=== PATIENT | male | born 1945 | race American Indian/Alaskan Native ===

== ENCOUNTER 2016-10-08 19:58 | Emergency (ER) | payer MEDICARE ==
--- NOTE | 2016-10-08 20:09 | Emergency Department Report ---
Chief Complaint: Dyspnea/Respdistress Stated Complaint: SHORTNESS OF BREATH Time Seen by Provider: 10/08/16 20:04 - HPI History of Present Illness: pt c/o sob since yesterday. PT saw pcp today but is no better after using inhalers. - ROS Review of Systems: denies cp + sob - Exam Physical Exam: thin male tachypnea noted MSE screening note: Focused history and physical exam performed. Due to findings the following was ordered: pt sent to EKG. labs, xr ED Disposition for MSE Condition: Stable
[2016-10-08 20:13] VITALS: BP 136/82
[2016-10-08 21:14] LABS: Basophils % (Auto) 0.6 % (0.0-1.8); Eosinophils % (Auto) 0.7 % (0.0-4.3); Hemoglobin 12.9 gm/dl (11.8-15.2); Mean Corpuscular HGB Conc 33 % (32-34); Mean Corpuscular Hemoglobin 28 pg (28-32); Mean Corpuscular Volume 85 fl (84-94); Platelet Count 170 K/mm3 (140-440); Red Blood Count 4.61 M/mm3 (3.65-5.03); White Blood Count 4.3 K/mm3 (4.5-11.0)
[2016-10-08 21:24] LABS: INR 0.94 (0.87-1.13)
[2016-10-08 21:25] LABS: Partial Thromboplastin Time 25.8 Sec. (24.2-36.6)
[2016-10-08 21:36] LABS: Alanine Aminotransferase 18 units/L (7-56); Albumin 3.6 g/dL (3.9-5); Albumin/Globulin Ratio 1.1 %; Alkaline Phosphatase 101 units/L (35-129); Anion Gap 28 mmol/L; BUN/Creatinine Ratio 16.25; Bilirubin,Total 1.4 mg/dL (0.1-1.2); Blood Urea Nitrogen 13 mg/dL (9-20); Calcium 9.3 mg/dL (8.4-10.2); Carbon Dioxide 24 mmol/L (22-30); Chloride 93.1 mmol/L (98-107); Glucose 74 mg/dL (75-100); Sodium 142 mmol/L (137-145)
--- NOTE | 2016-10-09 08:50 | XRay Report ---
PORTABLE CHEST INDICATION: Dyspnea. COMPARISON: 12/11/[address] FINDINGS: Portable, frontal chest radiograph again demonstrates normal cardiomediastinal silhouette, dense aortic knob calcifications, 1.4 cm AP window calcified lymph node, post CABG changes, biapical scarring/pleural thickening, clear well-expanded lungs and intact bones. CONCLUSION: No acute disease in the chest with post CABG changes noted, as described. Thank you for the opportunity to participate in this patient's care.
--- NOTE | 2016-10-09 15:16 | ED Elopement Review ---
ED Pt Elopement review - Results review Lab results: Laboratory Tests 10/08/16 10/08/16 10/08/16 20:53 20:53 20:53 WBC 4.3 L RBC 4.61 Hgb 12.9 Hct 39.0 MCV 85 MCH 28 MCHC 33 RDW 17.0 H Plt Count 170 Lymph % (Auto) 34.1 [place] % (Auto) 11.1 H Eos % (Auto) 0.7 Baso % (Auto) 0.6 Lymph # 1.5 [place] # 0.5 Eos # 0.0 Baso # 0.0 Seg Neutrophils % 53.5 Seg Neutrophils # 2.3 PT 12.5 INR 0.94 APTT 25.8 Sodium 142 Potassium 3.0 L Chloride 93.1 L Carbon Dioxide 24 Anion Gap 28 BUN 13 Creatinine 0.8 Estimated GFR > 60 BUN/Creatinine Ratio 16.25 Glucose 74 L Calcium 9.3 Total Bilirubin 1.4 H AST 41 H ALT 18 Alkaline Phosphatase 101 Troponin T Total Protein 7.0 Albumin 3.6 L Albumin/Globulin Ratio 1.1 10/08/16 20:53 WBC RBC Hgb Hct MCV MCH MCHC RDW Plt Count Lymph % (Auto) [place] % (Auto) Eos % (Auto) Baso % (Auto) Lymph # [place] # Eos # Baso # Seg Neutrophils % Seg Neutrophils # PT INR APTT Sodium Potassium Chloride Carbon Dioxide Anion Gap BUN Creatinine Estimated GFR BUN/Creatinine Ratio Glucose Calcium Total Bilirubin AST ALT Alkaline Phosphatase Troponin T < 0.010 Total Protein Albumin Albumin/Globulin Ratio - Call Back decision Pt Call Back Decision: No action required (Patient already returned to ED and was admitted.)
== END 2016-10-08 22:33 | disposition left against medical advice (07) ==
LOC: ED 19:58
DX: R06.02 Shortness of breath (principal); R06.82 Tachypnea, not elsewhere classified; Z53.21 Procedure and treatment not carried out due to patient leaving prior to being seen by health care provider
CPT/HCPCS: 36415; 71010; 80053; 84484; 85025; 85610; 85730; 93005; 93010

== ENCOUNTER 2017-03-21 04:19 | Emergency (ER) | payer MEDICARE ==
[2017-03-21] MEDS ORDERED: LEVOPHED DRIP 4 MG/NS 250 ML 4 MG/250 ML BAG IV ONE (04:29)
[2017-03-21] MEDS ORDERED: LEVOPHED 8 MG in NACL 0.9% 250ML 242 ML IV SCH (05:00)
[2017-03-21] MEDS ORDERED: INTROPIN DRIP 800 MG/D5W 250 ML 800 MG/250 ML BAG IV ONE ×2 (05:05→05:07)
--- NOTE | 2017-03-21 05:16 | Emergency Department Report ---
ED CPR HPI - General Chief Complaint: Cardiac Arrest/CPR Stated Complaint: CARDIAC ARREST Time Seen by Provider: 03/21/17 05:16 Source: family, EMS Mode of arrival: Stretcher Limitations: Other - History of Present Illness Initial Comments: 71 yo male with a past medical history COPD and triple bypass this is a hospital cardiopulmonary arrest. Last known well time 22:30. Patient was found unresponsive. PE A upon EMS arrival. Patient was intubated with a Combitube. Patient received epinephrine 4 and sodium bicarbonate 1 prior to arrival and remains in PEA upon arrival. Call received at 3:28am, EMS at the scene at 3:39 AM, patient arrived here at 4:11am. - Related Data Home Medications Medication Instructions Recorded Confirmed Last Taken Aspirin [Aspirin TAB] 325 mg PO QDAY 02/05/15 10/09/16 1 Day Ago AtorvaSTATin [Lipitor] 40 mg PO QDAY 02/05/15 10/09/16 1 Day Ago Clopidogrel [Plavix] 75 mg PO QDAY 02/05/15 10/09/16 1 Day Ago Metoprolol Xl [Metoprolol 25 mg PO QDAY 02/05/15 10/09/16 1 Day Ago SUCCINATE ER TAB] Niacin ER [Niaspan ER] 1,000 mg PO QDAY 02/05/15 10/09/16 1 Day Ago Nitroglycerin [Nitrostat] 0.4 mg SL Q5M PRN 02/05/15 10/09/16 Unknown Ranitidine HCl [Zantac 150 MG TAB] 150 mg PO BID 02/05/15 10/09/16 1 Day Ago clonazePAM 0.5 mg PO BID 02/05/15 10/09/16 2 Days Ago Previous Rx's Medication Instructions Recorded Last Taken Type Ondansetron [Zofran TAB] 4 mg PO Q8HR PRN #20 tablet 02/07/15 Unknown Rx oxyCODONE /ACETAMINOPHEN [Percocet 1 tab PO Q6HR PRN #20 tablet 02/07/15 1 Day Ago Rx 5/325 mg] Allergies Allergy/AdvReac Type Severity Reaction Status Date / Time No Known Allergies Allergy Verified 10/09/16 08:15 ED Review of Systems ROS: Stated complaint: CARDIAC ARREST Other details as noted in HPI Comment: Unobtainable due to pts medical conditions ED Past Medical Hx - Past Medical History Previous Medical History?: Yes Hx Hypertension: Yes Hx Heart Attack/AMI: Yes Hx GERD: Yes Hx COPD: Yes Hx HIV: No Additional medical history: CAD, HLD - Surgical History Hx Open Heart Surgery: Yes (QUAD BYPASS) Hx Appendectomy: Yes Additional Surgical History: HERNIA REPAIR; knee; back - Social History Smoking Status: Former Smoker - Medications Home Medications: Home Medications Medication Instructions Recorded Confirmed Last Taken Type Aspirin [Aspirin TAB] 325 mg PO QDAY 02/05/15 10/09/16 1 Day Ago History AtorvaSTATin [Lipitor] 40 mg PO QDAY 02/05/15 10/09/16 1 Day Ago History Clopidogrel [Plavix] 75 mg PO QDAY 02/05/15 10/09/16 1 Day Ago History Metoprolol Xl [Metoprolol 25 mg PO QDAY 02/05/15 10/09/16 1 Day Ago History SUCCINATE ER TAB] Niacin ER [Niaspan ER] 1,000 mg PO QDAY 02/05/15 10/09/16 1 Day Ago History Nitroglycerin [Nitrostat] 0.4 mg SL Q5M PRN 02/05/15 10/09/16 Unknown History Ranitidine HCl [Zantac 150 MG TAB] 150 mg PO BID 02/05/15 10/09/16 1 Day Ago History clonazePAM 0.5 mg PO BID 02/05/15 10/09/16 2 Days Ago History Ondansetron [Zofran TAB] 4 mg PO Q8HR PRN #20 tablet 02/07/15 10/09/16 Unknown Rx oxyCODONE /ACETAMINOPHEN [Percocet 1 tab PO Q6HR PRN #20 tablet 02/07/15 1 Day Ago Rx 5/325 mg] ED Physical Exam - General Limitations: Other - Other Other exam information: General: Unresponsive Head exam: Atraumatic, normocephalic Eyes exam: Pupils fixed and dilated ENT: Moist mucous membrane, Combitube Neck exam: Normal inspection Respiratory exam: Bilateral breath sounds with air movement with Combitube Cardiovascular: Pulseless, no audible heartbeat Abdomen: Soft, nondistended Extremity: No deformity. No spontaneous movement Back: Normal Inspection Neurologic: GCS equals 3 Skin: Warm, dry, intact ED Course - Reevaluation(s) Reevaluation #1: 03/21/17 We continued resuscitation efforts in the ED. Patient received multiple doses of epi and sodium bicarbonate. Positive return of spontaneous circulation temporarily. Patient was significantly hypotensive. Levophed initiated to through peripheral line while central line was placed. Patient had intermittent pulselessness and PEA episodes with temporary return in spontaneous circulation. Combitube was removed the patient was intubated. Despite resuscitation efforts including intubation, Levophed at maximum dose, CPR, and IV medication patient deteriorated to PEA and remained pulseless. Time of 5:10 AM. Family members informed. See code sheet for medication details - Central Line Placement Right Femoral Consent Obtained: emergent situation Time Out Performed: Yes Patient Placed on Monitor/Pulse Ox: Yes MD Prep: mask, gown, gloves Central Line Prep: Chlorhexidine scrub Local Anesthesia Used: Lidocaine 1% Ultrasound Used for Placement: Yes Central Line Lumen Inserted: triple Bloods Obtained for Lab: Yes Central Line Position: good blood return, sutured in place with nyl Dressing Applied: Tegaderm Patient Tolerated Procedure: well Complications: none - Intubation Time Out Performed: Yes Sedative: none Laryngoscope: Roberta Size: 3 ET Tube Size: 7.5 Tube Secured Depth (cm): 20 Tube Secured Location: lips Tube Placement Confirmation: visualized tube passing t, equal breath sounds bilat, no breath sounds over epi, confirmation by capnometr Patient Tolerated Procedure: well Intubation Complications: none ED Medical Decision Making - Medical Decision Making Despite resuscitation efforts patient did not maintain a pressure or pulse. Time of 5:10 AM - Differential Diagnosis mi, pe, arrhytmia, cva Critical Care Time: Yes Critical care time in (mins) excluding proc time.: 65 Critical care attestation.: If time is entered above; I have spent that time in minutes in the direct care of this critically ill patient, excluding procedure time. ED Disposition Clinical Impression: Cardiopulmonary arrest Disposition: [id number]-20 Is pt being admited?: No Condition: Critical Time of Disposition: 05:25
[2017-03-21] MEDS ORDERED: ADRENALIN ONE (14:53)
[2017-03-21] MEDS ORDERED: SODIUM BICARBONATE IV ONE (14:53)
== END 2017-03-21 07:50 ==
LOC: ED 04:19
DX: I46.9 Cardiac arrest, cause unspecified (principal); I10 Essential (primary) hypertension; I25.2 Old myocardial infarction; K21.9 Gastro-esophageal reflux disease without esophagitis; J44.9 Chronic obstructive pulmonary disease, unspecified; Z87.891 Personal history of nicotine dependence; Z79.82 Long term (current) use of aspirin
CPT/HCPCS: 31500; 36556; 92950; 93005; 93010; 96374; 99291; J0171; J1265